=== PATIENT | male | born 1940 | race Caucasian/White ===

== ENCOUNTER → 2017-08-16 | Outpatient (CLI) | payer MEDICARE, OTHER ==
[~2017-08-16] MED LIST: AMOX500T10 PO; ATE50 PO; ATEN-65 PO; ATOR10TA24 PO; ATOR10TA65 PO; ATR10 PO; BIMA2.5D5 OP; BIMOD OP; BRIM5DRO7 OP; CHOL100062 PO; CYA1000 PO; CYAN500T49 PO; DOC100 PO; DORZ10DR20 OP; DORZ10DR3 OP; ENOX80DI8 SQ; HCTZ25 PO; HYDR-2966 PO; HYDR12.558 PO; LOR5/325 PO; NYST15CR32 TP; NYST15CR33 TP; OXYGENHOME INH; PER PO; PNEU0.5D3 IM; TAMS0.4C25 PO; WAR25 PO; WARF-12 PO; WARF2.5T11 PO; WARF3TAB36 PO; WARF4TAB47 PO; ZOST19404 SQ
[2017-08-16 12:35] LABS: INR 2.52
== END ==
LOC: LAB 11:38
PROVIDERS: ATTEND Pharmacist Pharmacotherapy
DX: Z95.2 Presence of prosthetic heart valve (principal)
CPT/HCPCS: 36415; 85610

== ENCOUNTER → 2017-09-17 | Outpatient (CLI) | payer MEDICARE, OTHER ==
[2017-09-17 14:57] LABS: INR 3.31
== END ==
LOC: LAB 13:49
PROVIDERS: ATTEND Pharmacist Pharmacotherapy
DX: Z95.2 Presence of prosthetic heart valve (principal)
CPT/HCPCS: 36415; 85610

== ENCOUNTER → 2017-10-23 | Outpatient (CLI) | payer MEDICARE, OTHER ==
[2017-10-23 14:25] LABS: INR 2.43
== END ==
LOC: LAB 14:04
PROVIDERS: ATTEND Pharmacist Pharmacotherapy
DX: Z95.2 Presence of prosthetic heart valve (principal)
CPT/HCPCS: 36415; 85610

== ENCOUNTER → 2017-11-22 | Outpatient (CLI) | payer MEDICARE, OTHER ==
[~2017-11-22] MED LIST changes: +WARF5TAB23 PO
== END ==
LOC: LAB 15:41
PROVIDERS: ATTEND Radiology Radiation Oncology
DX: C61 Malignant neoplasm of prostate (principal); Z95.4 Presence of other heart-valve replacement
CPT/HCPCS: 36415; 84153; 85610

== ENCOUNTER → 2017-11-22 | Outpatient (CLI) | payer MEDICARE, OTHER ==
[~2017-11-22] MED LIST changes: -WARF5TAB23 PO
[2017-11-22 16:16] LABS: INR 2.79
== END ==
LOC: LAB 15:35
PROVIDERS: ATTEND Pharmacist Pharmacotherapy
DX: Z95.4 Presence of other heart-valve replacement (principal)
CPT/HCPCS: 36415; 85610

== ENCOUNTER 2017-11-27 14:59 | Outpatient (RCR) | payer MEDICARE ==
[2017-11-28] MEDS ORDERED: WARF5TAB23 PO (15:15)
== END 2017-12-12 14:39 | disposition home or self-care (01) ==
LOC: RAON 14:59
PROVIDERS: ATTEND Radiology Radiation Oncology
DX: Z85.46 Personal history of malignant neoplasm of prostate (principal); Z92.3 Personal history of irradiation; Z87.891 Personal history of nicotine dependence; H40.9 Unspecified glaucoma; I10 Essential (primary) hypertension; Z79.01 Long term (current) use of anticoagulants; Z79.899 Other long term (current) drug therapy
CPT/HCPCS: 99212

== ENCOUNTER → 2018-01-15 | Outpatient (CLI) | payer MEDICARE ==
[~2018-01-15] MED LIST changes: +WARF5TAB23 PO
[2018-01-15 12:15] LABS: INR 3.27
== END ==
LOC: LAB 11:44
PROVIDERS: ATTEND Pharmacist Pharmacotherapy
DX: Z51.81 Encounter for therapeutic drug level monitoring (principal); Z79.01 Long term (current) use of anticoagulants; Z95.2 Presence of prosthetic heart valve
CPT/HCPCS: 36415; 85610

== ENCOUNTER → 2018-02-22 | Outpatient (CLI) | payer MEDICARE ==
[2018-02-22 10:49] LABS: INR 2.78
== END ==
LOC: LAB 10:20
PROVIDERS: ATTEND Pharmacist Pharmacotherapy
DX: Z95.4 Presence of other heart-valve replacement (principal)
CPT/HCPCS: 36415; 85610

== ENCOUNTER → 2018-03-14 | Outpatient (CLI) | payer MEDICARE, OTHER ==
[2018-03-14 13:09] LABS: PLATELET COUNT, AUTOMATED 208 K/uL (150-450)
[2018-03-14 13:39] LABS: LDL CHOLESTEROL 64 mg/dl
== END ==
LOC: LAB 11:24
PROVIDERS: ATTEND Internal Medicine
DX: G47.33 Obstructive sleep apnea (adult) (pediatric) (principal); I10 Essential (primary) hypertension; E78.00 Pure hypercholesterolemia, unspecified; E34.9 Endocrine disorder, unspecified
CPT/HCPCS: 36415; 81001; 82040; 82247; 82310; 82374; 82435; 82465; 82565; 82947; 83718; 84075; 84132; 84155; 84295; 84443; 84450; 84460; 84478; 84520; 85025

== ENCOUNTER → 2018-03-29 | Outpatient (CLI) | payer MEDICARE, OTHER ==
[2018-03-29 13:58] LABS: INR 3.06
== END ==
LOC: LAB 13:27
PROVIDERS: ATTEND Internal Medicine
DX: Z51.81 Encounter for therapeutic drug level monitoring (principal); Z79.01 Long term (current) use of anticoagulants; Z95.4 Presence of other heart-valve replacement
CPT/HCPCS: 36415; 85610

== ENCOUNTER → 2018-04-29 | Outpatient (CLI) | payer MEDICARE, OTHER ==
[2018-04-29 15:47] LABS: INR 3.2
== END ==
LOC: LAB 15:18
PROVIDERS: ATTEND Pharmacist Pharmacotherapy
DX: Z95.4 Presence of other heart-valve replacement (principal)
CPT/HCPCS: 36415; 85610

== ENCOUNTER → 2018-06-03 | Outpatient (CLI) | payer MEDICARE, OTHER ==
[~2018-06-03] MED LIST changes: +FLU180SY11 IM
[2018-06-03 09:34] LABS: INR 3.03
== END ==
LOC: LAB 09:12
PROVIDERS: ATTEND Pharmacist Pharmacotherapy
DX: Z95.4 Presence of other heart-valve replacement (principal)
CPT/HCPCS: 36415; 85610

== ENCOUNTER → 2018-07-09 | Outpatient (CLI) | payer MEDICARE, OTHER ==
[2018-07-09 14:32] LABS: INR 2.74
== END ==
LOC: LAB 14:06
PROVIDERS: ATTEND Pharmacist Pharmacotherapy
DX: Z95.4 Presence of other heart-valve replacement (principal)
CPT/HCPCS: 36415; 85610

== ENCOUNTER → 2018-09-12 | Outpatient (CLI) | payer MEDICARE, OTHER ==
[2018-09-12 14:31] LABS: INR 2.89
== END ==
LOC: LAB 13:28
PROVIDERS: ATTEND Pharmacist Pharmacotherapy
DX: Z95.4 Presence of other heart-valve replacement (principal)
CPT/HCPCS: 36415; 85610

== ENCOUNTER → 2018-10-15 | Outpatient (CLI) | payer MEDICARE, OTHER ==
[2018-10-15 12:11] LABS: INR 2.75
== END ==
LOC: LAB 11:48
PROVIDERS: ATTEND Pharmacist Pharmacotherapy
DX: Z51.81 Encounter for therapeutic drug level monitoring (principal); Z95.4 Presence of other heart-valve replacement
CPT/HCPCS: 36415; 85610

== ENCOUNTER → 2018-11-20 | Outpatient (CLI) | payer MEDICARE, OTHER ==
[2018-11-20 15:58] LABS: INR 3.19
== END ==
LOC: LAB 15:32
PROVIDERS: ATTEND Pharmacist Pharmacotherapy
DX: Z51.81 Encounter for therapeutic drug level monitoring (principal); Z79.01 Long term (current) use of anticoagulants
CPT/HCPCS: 36415; 85610

== ENCOUNTER → 2018-12-25 | Outpatient (CLI) | payer MEDICARE, OTHER ==
[2018-12-25 10:58] LABS: INR 3.29
== END ==
LOC: LAB 10:21
PROVIDERS: ATTEND Pharmacist Pharmacotherapy
DX: Z95.4 Presence of other heart-valve replacement (principal)
CPT/HCPCS: 36415; 85610

== ENCOUNTER 2019-01-03 09:30 | Outpatient (RCR) | payer MEDICARE, OTHER ==
[2019-01-03 09:56] VITALS: BP 110/70
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
--- NOTE | 2019-01-04 17:03 | ONCOLOGY FOLLOW UP NOTE ---
EVENT DATE: January 03, 2019 CHIEF COMPLAINT/REASON FOR OFFICE VISIT Prostate carcinoma with ongoing surveillance. ONCOLOGY HISTORY 1. [place] 3 + 3 = 6 adenocarcinoma involving 5 of 12 core biopsies 2012. Pre- biopsy PSA of 6.6 ng/mL. 2. Patient completed external beam radiotherapy to the pelvis to 5040 cGy in 20 fractions with palladium-103 seed brachytherapy boost with Dr. Hayes/Dr. Sales. It was initially T1c N0 M0 malignancy, stage I. HISTORY OF PRESENT ILLNESS/INTERVAL HISTORY Patient continues to do exceptionally well. He is now six years remote from the radiation therapy program. He denies any significant voiding issues. AUA score is stable at 9. Patient had a PSA repeated on 11/13/18, which is less than 0.1 ng/mL. The latter is consistent with an excellent therapeutic response. MEDICATIONS 1. Tamsulosin 24 mg a day. 2. Coumadin 2.5 mg a day. 3. Hydrochlorothiazide 25 mg a day. 4. Atorvastatin 10 mg a day. 5. B12 1000 mcg tablet a day. 6. Oxygen 4L at night. 7. Lumigan. 8. Alphagan. 9. Cosopt eye drops. FAMILY HISTORY Father had renal cell carcinoma at age 50. Mother had leukemia at age 50. 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 COMPREHENSIVE REVIEW OF SYSTEMS See completed notes in chart. PHYSICAL EXAMINATION HEENT: Unremarkable. LUNGS: Clear bilaterally. HEART: Sounds regular. There is a prominent S2 from a valve replacement. ABDOMEN: No gross organomegaly. RECTAL: Exam deferred due to recent subnormal PSA. IMPRESSION No evidence of prostate carcinoma recurrence six years removed from therapy. PLAN The patient will be released from the Radiation Oncology Clinic. He will continue medical with Dr. Davidson and will drop by a PSA annually. Overall, I am very pleased with his course to date. [facility]
== END 2019-02-10 13:43 | disposition home or self-care (01) ==
LOC: RAON 09:30
PROVIDERS: ATTEND Radiology Radiation Oncology
DX: Z85.46 Personal history of malignant neoplasm of prostate (principal); Z92.3 Personal history of irradiation; Z87.891 Personal history of nicotine dependence
CPT/HCPCS: 99212

== ENCOUNTER → 2019-01-23 | Outpatient (CLI) | payer MEDICARE, OTHER ==
[2019-01-23 15:52] LABS: INR 2.55
== END ==
LOC: LAB 15:24
PROVIDERS: ATTEND Pharmacist Pharmacotherapy
DX: Z95.4 Presence of other heart-valve replacement (principal)
CPT/HCPCS: 36415; 85610

== ENCOUNTER → 2019-03-19 | Outpatient (CLI) | payer MEDICARE, OTHER ==
--- NOTE | 2019-03-19 11:24 | RADIOLOGY IMAGING REPORT ---
FACILITY: [facility] - [place] PATIENT NAME: Reece Valero : 1940 MR: [id number] V: [id number] EXAM DATE: ORDERING PHYSICIAN: NICOLAS MENJIVAR TECHNOLOGIST: Location: [facility] Patient: Reece Valero : 1940 Visit/Account:[id number] Date of Sevice: 03/19/2019 Study: Lumbar spine series Indication: Low back pain Comparison study: None Findings: AP lateral and coned-down lateral views of the lumbar spine demonstrates no evidence of com pression fracture. There is no evidence of spondylolisthesis. There is no evidence of lytic or blasti c lesions. There is moderate degenerative disease of the lower lumbar facets. There is a minimal levoscoliosis present. IMPRESSION: Minimal levoscoliosis present. Moderate degenerative disease of the lower lumbar facets. Report Dictated By: Jj Ortiz at 03/19/2019 11:12 AM Report E-Signed By: Jj Ortiz at 03/19/2019 11:13 AM WSN:[id number]
== END ==
LOC: RAD 10:40
PROVIDERS: ATTEND Internal Medicine
DX: M51.36 Other intervertebral disc degeneration, lumbar region (principal)
CPT/HCPCS: 72100

== ENCOUNTER 2019-04-02 17:36 | Emergency (ER) | payer MEDICARE, OTHER ==
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
[2019-04-02 18:23] LABS: INR 2.66
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
[2019-04-02] MEDS ORDERED: PHYTONADIONE 5 MG TAB PO ONE (18:55)
[2019-04-02 19:12] VITALS: BP 144/90
[2019-04-02 19:26] LABS: PLATELET COUNT, AUTOMATED 238 K/uL (150-450)
== END 2019-04-02 20:09 | disposition short-term general hospital (02) ==
LOC: ER 17:54
DX: S09.90XA Unspecified injury of head, initial encounter (principal); S60.511A Abrasion of right hand, initial encounter; Z79.01 Long term (current) use of anticoagulants
CPT/HCPCS: 12002; 36415; 70450; 85025; 85610; 99285; A9270; 82040; 82247; 82310; 82374; 82435; 82565; 82947; 84075; 84132; 84155; 84295; 84450; 84460; 84520

== ENCOUNTER → 2019-04-02 | Outpatient (CLI) | payer MEDICARE, OTHER | LOC: AMB 19:32 | PROVIDERS: ATTEND Nurse Practitioner | DX: S06.5X9A Traumatic subdural hemorrhage with loss of consciousness of unspecified duration, initial encounter (principal) | CPT/HCPCS: A0425; A0426 ==